=== PATIENT | female | born 1985 | race Hispanic/Latino ===

== ENCOUNTER 2021-09-26 09:21 | Outpatient (CLI) | payer BC, OTHER | END 2021-09-26 09:22 | disposition home or self-care (01) | LOC: CSHULT 09:21 | PROVIDERS: ATTEND Family Medicine | DX: O26.872 Cervical shortening, second trimester (principal); Z3A.20 20 weeks gestation of pregnancy | CPT/HCPCS: 76805 ==

== ENCOUNTER 2021-10-11 11:17 | Day surgery (SDC) | payer BC, OTHER ==
[2021-10-11] MEDS ORDERED: Lactated Ringer's 1,000 ML IV SCH (12:15)
[2021-10-11 13:00] LABS: Fetal Membranes Rupture No Membranes Rupture (No Rupture)
== END 2021-10-11 14:53 | disposition short-term general hospital (02) ==
LOC: CSHLD/OP 11:17
PROVIDERS: ATTEND Family Medicine
DX: O26.872 Cervical shortening, second trimester (principal); O34.211 Maternal care for low transverse scar from previous cesarean delivery; O10.912 Unspecified pre-existing hypertension complicating pregnancy, second trimester; Z3A.22 22 weeks gestation of pregnancy
CPT/HCPCS: 84112

== ENCOUNTER 2022-01-31 10:35 | Outpatient (CLI) | payer BC, OTHER ==
[2022-01-31 12:37] LABS: Hemoglobin 10.7 g/dL (12.0-15.5); Mean Corpuscular HGB CONC 33.9 g/dL (32.0-36.0); Mean Corpuscular Hemoglobin 31.8 pg (27.0-33.0); Mean Corpuscular Volume 93.8 fl (81.6-98.3); Mean Platelet Volume 11.1 fl (7.4-10.4); Platelet Count 317 10x3/uL (150-450); RBC Distribution Width 14.6 % (11.5-14.5); Red Blood Cell (RBC) Count 3.37 10x6/uL (3.90-5.03); White Blood Cell (WBC) Count 9.9 10x3/uL (3.5-10.5)
[2022-01-31 13:13] LABS: HBSAg Index 0.23 S/CO (0-0.99); Hep B Surf Ag Non-Reactive S/CO (NonReactive); Syphilis Antibody Nonreactive (Nonreactive); Syphilis Antibody Index 0.05 S/CO (<1.00 Non-Reactive)
== END 2022-01-31 10:36 | disposition home or self-care (01) ==
LOC: CSHLAB 10:35
PROVIDERS: ATTEND Family Medicine
DX: Z01.812 Encounter for preprocedural laboratory examination (principal); Z20.822 Contact with and (suspected) exposure to COVID-19
CPT/HCPCS: 85027; 86780; 86900; 86901; 87340; U0003; U0005

== ENCOUNTER 2022-02-04 05:32 | Inpatient (IN) | payer BC, OTHER ==
[2022-02-04 06:03] VITALS: BMI 28.3
[2022-02-04] MEDS ORDERED: Famotidine/PF 20 mg/2ml Vial SLOW IVP PRN (06:03)
[2022-02-04] MEDS ORDERED: Lactated Ringer's 1,000 ML IV SCH (06:03)
[2022-02-04] MEDS ORDERED: Ondansetron PF 4 MG/2 ML Vial IVP PRN ×3 (06:03→09:30)
[2022-02-04] MEDS ORDERED: CEFAZOLIN 2 GM in Sodium Chloride 0.9% 100 ML IVPB SCH (06:03)
[2022-02-04] MEDS ORDERED: Promethazine HCl 25 MG/ML VIAL IM PRN ×3 (06:03→09:30)
[2022-02-04] MEDS ORDERED: Bicitra 30 ML UDCUP PO PRN (06:03)
[2022-02-04] MEDS ORDERED: hydrALAZINE 20 MG/ML VIAL SLOW IVP PRN ×2 (06:03→09:30)
[2022-02-04] MEDS ORDERED: CEFAZOLIN 2 GM VIAL ONE (06:11)
[2022-02-04] MEDS ORDERED: Morphine PF 10 MG/10 ML VIAL ONE (06:59)
[2022-02-04] MEDS ORDERED: Fentanyl 100 MCG/2 ML VIAL ONE (06:59)
[2022-02-04] MEDS ORDERED: Ondansetron PF 4 MG/2 ML Vial ONE (07:00)
[2022-02-04] MEDS ORDERED: Phenylephrine 10 MG/ML VIAL ONE (07:00)
[2022-02-04] MEDS ORDERED: Ketorolac Tromethamine 30 MG/ML VIAL ONE (07:00)
[2022-02-04] MEDS ORDERED: Oxytocin 10 UNITS/ML VIAL ONE (07:00)
[2022-02-04] MEDS ORDERED: diphenhydrAMINE 50 MG/ML VIAL IVP PRN (07:11)
[2022-02-04] MEDS ORDERED: Promethazine HCl 25 MG SUPP PR PRN (07:11)
[2022-02-04] MEDS ORDERED: Fentanyl 100 MCG/2 ML VIAL SLOW IVP PRN (07:11)
[2022-02-04] MEDS ORDERED: Meperidine HCl/PF 25 MG/ML VIAL SLOW IVP PRN (07:11)
[2022-02-04] MEDS ORDERED: Naloxone HCl 0.4 mg/ml Vial IVP PRN ×2 (07:11)
[2022-02-04] MEDS ORDERED: Moisturizing Cream (Eucerin) 113 GM JAR TOP PRN (07:11)
[2022-02-04] MEDS ORDERED: Ketorolac Tromethamine 30 MG/ML VIAL IVP PRN (07:11)
[2022-02-04] MEDS ORDERED: HYDROmorphone 2 MG/ML VIAL SLOW IVP PRN ×3 (07:11→11:05)
[2022-02-04] MEDS ORDERED: Naloxone HCl 0.4 mg/ml Vial IV PRN (07:11)
[2022-02-04] MEDS ORDERED: Ondansetron HCl/PF 4 MG/2 ML Vial IVP PRN (07:11)
[2022-02-04] MEDS ORDERED: Communication Order-Pharmacy FS SCH (07:15)
[2022-02-04] MEDS ORDERED: Ketorolac Tromethamine 30 MG/ML VIAL IVP SCH (07:15)
[2022-02-04] MEDS ORDERED: Erythromycin Base 0.5% Oint 1 GM TUBE ONE (08:23)
[2022-02-04] MEDS ORDERED: Hepatitis B Vaccine 10 MCG/0.5 ML SYR ONE (08:23)
[2022-02-04] MEDS ORDERED: Phytonadione Neonatal 1 MG/0.5 ML AMP ONE (08:23)
[2022-02-04] MEDS ORDERED: Bisacodyl 10 MG SUPP PR PRN (09:30)
[2022-02-04] MEDS ORDERED: NS w/ Oxytocin 30 units 500 ML IV SCH (09:30)
[2022-02-04] MEDS ORDERED: Misoprostol 200 MCG TAB PR PRN (09:30)
[2022-02-04] MEDS ORDERED: Boostrix 0.5 ML (Tdap) VIAL (>/=7 yrs of age) IM ONE (09:30)
[2022-02-04] MEDS ORDERED: diphenhydrAMINE 25 MG CAP PO PRN (09:30)
[2022-02-04] MEDS ORDERED: Simethicone Chewable 80 MG TAB PO PRN (09:30)
[2022-02-04] MEDS ORDERED: Methylergonovine 0.2 MG/ML VIAL IM PRN (09:30)
[2022-02-04] MEDS ORDERED: Ferrous Sulfate 325 MG TAB PO SCH (09:45)
[2022-02-04] MEDS ORDERED: NS w/ Oxytocin 30 units 500 ML ONE (09:49)
[2022-02-04] MEDS ORDERED: Docusate 100 MG CAP PO SCH (10:00)
[2022-02-04] MEDS ORDERED: Prenatal Vitamin 1 TAB PO SCH (10:00)
[2022-02-04] MEDS: Ibuprofen 800 MG TAB PO SCH (13:37)
[2022-02-04] MEDS: Ketorolac Tromethamine 30 MG/ML VIAL IVP SCH ×2 (14:55→22:35)
[2022-02-04] MEDS: Lactated Ringer's 1,000 ML IV SCH ×2 (14:56→17:34)
[2022-02-04] MEDS ORDERED: HYDROcodone/Acetaminophen 5/325 mg Tablet PO PRN (19:15)
[2022-02-04] MEDS: Docusate 100 MG CAP PO SCH (22:36)
[2022-02-04] MEDS: Ferrous Sulfate 325 MG TAB PO SCH (23:24)
[2022-02-05 05:00] LABS: Hemoglobin 9.2 g/dL (12.0-15.5); Mean Corpuscular HGB CONC 32.7 g/dL (32.0-36.0); Mean Corpuscular Hemoglobin 31.1 pg (27.0-33.0); Mean Corpuscular Volume 94.9 fl (81.6-98.3); Mean Platelet Volume 10.8 fl (7.4-10.4); Platelet Count 273 10x3/uL (150-450); RBC Distribution Width 14.4 % (11.5-14.5); Red Blood Cell (RBC) Count 2.96 10x6/uL (3.90-5.03); White Blood Cell (WBC) Count 11.8 10x3/uL (3.5-10.5)
[2022-02-05] MEDS: Ketorolac Tromethamine 30 MG/ML VIAL IVP SCH (05:32)
[2022-02-05] MEDS: Ibuprofen 800 MG TAB PO SCH ×3 (06:36→21:10)
[2022-02-05] MEDS: Lactated Ringer's 1,000 ML IV SCH ×3 (08:34→14:13)
[2022-02-05] MEDS: Ferrous Sulfate 325 MG TAB PO SCH (08:34)
[2022-02-05] MEDS: Docusate 100 MG CAP PO SCH ×2 (08:35→21:12)
[2022-02-05] MEDS: Prenatal Vitamin 1 TAB PO SCH (08:35)
[2022-02-05] MEDS: HYDROcodone/Acetaminophen 5/325 mg Tablet PO PRN ×2 (09:42→16:51)
[2022-02-06] MEDS: HYDROcodone/Acetaminophen 5/325 mg Tablet PO PRN ×3 (01:57→19:18)
[2022-02-06] MEDS: Ibuprofen 800 MG TAB PO SCH ×3 (06:14→21:30)
[2022-02-06] MEDS: Lactated Ringer's 1,000 ML IV SCH ×3 (06:16→14:17)
[2022-02-06] MEDS: Ferrous Sulfate 325 MG TAB PO SCH ×4 (06:16→21:30)
[2022-02-06] MEDS: Prenatal Vitamin 1 TAB PO SCH (08:19)
[2022-02-06] MEDS: Docusate 100 MG CAP PO SCH ×2 (08:19→21:30)
[2022-02-07] MEDS: Lactated Ringer's 1,000 ML IV SCH ×3 (01:30→13:14)
[2022-02-07] MEDS: Ibuprofen 800 MG TAB PO SCH ×2 (05:05→13:09)
[2022-02-07] MEDS: HYDROcodone/Acetaminophen 5/325 mg Tablet PO PRN ×2 (05:10→12:17)
[2022-02-07] MEDS: Prenatal Vitamin 1 TAB PO SCH (08:22)
[2022-02-07] MEDS: Ferrous Sulfate 325 MG TAB PO SCH (08:22)
[2022-02-07] MEDS: Docusate 100 MG CAP PO SCH (08:22)
[2022-02-07 08:24] VITALS: BP 99/59; TEMP 98
== END 2022-02-07 15:20 | disposition home or self-care (01) | DRG 788 ==
LOC: CSHLD 05:32 → CSHPP 09:06
PROVIDERS: ADMIT Family Medicine; ATTEND Family Medicine
PROC: 10D00Z1 Extraction of Products of Conception, Low, Open Approach (ICD-10-PCS; principal; 2022-02-04)
DX: O34.211 Maternal care for low transverse scar from previous cesarean delivery (principal); Z3A.39 39 weeks gestation of pregnancy; Z37.0 Single live birth; N80.9 Endometriosis, unspecified; O99.892 Other specified diseases and conditions complicating childbirth
CPT/HCPCS: 36415; 51702; 85027; 86850; 86900; 86901; J0690; J1885; J2274; J2370; J2405; J2590; J3010; J3490; J7120